=== PATIENT | female | born 1945 | race Caucasian/White ===

== ENCOUNTER → 2017-05-09 | Outpatient (CLI) | payer MEDICARE, OTHER ==
--- NOTE | 2017-05-09 10:34 | RAD ---
SHOULDER 2+V LEFT Clinical Indication: 71-year-old female with left shoulder pain, history of pain, no known fall. Comparison: April 2009, chest radiograph dated December 27, 2010. Technique: Attempted internal and external rotational and Y scapular views of the left shoulder are obtained. Findings: Significant degenerative changes of the glenohumeral joint are seen. There is chronic appearing anteromedial migration of the humeral head, as seen on previous exams. A definite dislocation is not seen, with positioning of the humeral head similar to previous post reduction images. The humeral head overlies the glenoid on nearly all images, limiting detailed visualization for nondisplaced fracture. Visualized ribs appear intact. Visualized lung is clear. Surrounding soft tissues demonstrate no acute finding. IMPRESSION: Chronic changes of the glenohumeral joint, detailed above, without definite evidence of fracture or dislocation.
== END | disposition home or self-care (01) ==
LOC: RAD 09:04
PROVIDERS: ATTEND Physician Assistant Medical
DX: M19.012 Primary osteoarthritis, left shoulder (principal)
CPT/HCPCS: 73030

== ENCOUNTER 2017-05-11 11:50 | Emergency (ER) | payer MEDICARE, OTHER ==
[~2017-05-11] VITALS: Ht 162.6 cm; Wt 112.0 kg
--- NOTE | 2017-05-11 12:59 | PHYS DOC ---
Past History Past Medical History: Arthritis, High Cholesterol Past Surgical History: Tonsillectomy Smoking: Non-smoker Alcohol Use: None Drug Use: None Adult General Chief Complaint Chief Complaint: SHOULDER INJURY HPI HPI 71-year-old left-handed female patient with history of chronic left shoulder pain and rotator cuff injury complaining of constant left shoulder pain for the past 6 days getting worse with movement without any known injury but states she felt a pop in her shoulder. Patient states she had X ray of her shoulder 3 days ago but does not know about the results and called her primary care physician who recommended to come to emergency room for evaluation. Patient denies history of shoulder dislocation or fracture, focal neuro deficit, fever and chills. Patient takes oxycodone and OxyContin and fentanyl patch and Ultram at home but states it does not help for her pain. Review of Systems Review of Systems Constitutional: Denies fever or chills [] Eyes: Denies change in visual acuity, redness, or eye pain [] HENT: Denies nasal congestion or sore throat [] Respiratory: Denies cough or shortness of breath [] Cardiovascular: No additional information not addressed in HPI [] GI: Denies abdominal pain, nausea, vomiting, bloody stools or diarrhea [] : Denies dysuria or hematuria [] Musculoskeletal: Reports joint pain [] Integument: Denies rash or skin lesions [] Neurologic: Denies headache, focal weakness or sensory changes [] Endocrine: Denies polyuria or polydipsia [] All other systems were reviewed and found to be within normal limits, except as documented in this note. Current Medications Current Medications Current Medications Medications (Trade) Dose Ordered Sig/[facility] Start Time Stop Time Status Last Admin Dose Admin Fentanyl Citrate (Fentanyl 2ml Vial) 50 mcg 1X ONCE 05/11/17 12:30 05/11/17 12:31 UNV Physical Exam Physical Exam Constitutional: Mild distress, non-toxic appearance, morbidly obese, anxious, sitting on electrical scooter HENT: Normocephalic, atraumatic, bilateral external ears normal, oropharynx moist, no oral exudates, nose normal. [] Eyes: PERRLA, EOMI, conjunctiva normal, no discharge. [] Neck: Normal range of motion, no tenderness, supple, no stridor. [] Cardiovascular:Heart rate regular rhythm, no murmur [] Lungs & Thorax: Bilateral breath sounds clear to auscultation [] Skin: Warm, dry, no erythema, no rash. [] Extremities: Left shoulder without deformity or focal tenderness, painful range of motion but able to raise her arm and use her left hand Neurologic: Alert and oriented X 3, normal motor function, normal sensory function, no focal deficits noted. [] Current Patient Data Vital Signs Vital Signs Date Time Temp Pulse Resp B/P (MAP) Pulse Ox O2 Delivery O2 Flow Rate FiO2 05/11/17 12:10 98.8 81 22 96 Room Air EKG EKG [] Radiology/Procedures Radiology/Procedures [] Course & Med Decision Making Course & Med Decision Making X-ray of left shoulder dated May 13 showed no acute fracture or dislocation, chronic degenerative changes Condition of patient showed 71-year-old female patient with several pain medication at home complaining of left shoulder pain for almost 1 week. Patient had sling without sign of fracture of dislocation in p x-ray. Patient had a shot of Fentanyl and instructed to follow with her primary care physician regarding chronic shoulder pain. Dragon Disclaimer Dragon Disclaimer This electronic medical record was generated, in whole or in part, using a voice recognition dictation system. Departure Departure: Impression: Primary Impression: Chronic left shoulder pain Disposition: HOME, SELF-CARE (At 1257) Condition: IMPROVED Referrals: VETO SHAH (PCP) Follow-up with your physician in 2 or 3 days Patient Instructions: Joint Sprain Additional Instructions: Use the sling and continue home pain medication MILADIS STEVENS MD May 11, 2017 12:59
[2017-05-11 13:08] VITALS: BP 130/71
== END 2017-05-11 13:10 | disposition home or self-care (01) ==
LOC: ER 11:50
DX: G89.29 Other chronic pain (principal); M25.512 Pain in left shoulder; E78.00 Pure hypercholesterolemia, unspecified; M19.90 Unspecified osteoarthritis, unspecified site
CPT/HCPCS: 96372; 99283; J3010

== ENCOUNTER → 2020-04-20 | Outpatient (CLI) | payer MEDICARE, OTHER ==
[2020-04-20 13:31] LABS: BASO # 0.1 x10^3/uL (0.0-0.2); BASO % 1 % (0-3); EOS # 0.2 x10^3/uL (0.0-0.7); EOS % 3 % (0-3); HEMATOCRIT 36.7 % (36.0-47.0); LYMPH # 1.1 x10^3/uL (1.0-4.8); LYMPH % 19 % (24-48); MEAN CORPUSCULAR HEMOGLOBIN 28 pg (25-35); MEAN CORPUSCULAR HGB CONC 33 g/dL (31-37); MEAN CORPUSCULAR VOLUME 87 fL (79-100); MONO # 0.4 x10^3/uL (0.0-1.1); MONO % 6 % (0-9); NEUT # 3.9 x10^3uL (1.8-7.7); NEUT % 71 % (31-73); PLATELET COUNT 224 x10^3/uL (140-400); RED BLOOD COUNT 4.24 x10^6/uL (3.50-5.40); RED CELL DISTRIBUTION WIDTH 14.5 % (11.5-14.5); WHITE BLOOD COUNT 5.6 x10^3/uL (4.0-11.0)
[2020-04-20 13:39] LABS: ALBUMIN 3.1 g/dL (3.4-5.0); ALBUMIN/GLOBULIN RATIO 0.8 (1.0-1.7); CALCIUM 9.6 mg/dL (8.5-10.1); CREATININE 1.4 mg/dL (0.6-1.0); GFR 36.7; POTASSIUM 4.5 mmol/L (3.5-5.1); TOTAL BILIRUBIN 0.1 mg/dL (0.2-1.0); TOTAL PROTEIN 7.1 g/dL (6.4-8.2)
[2020-04-20 20:02] LABS: FREE T4 1.14 ng/dL (0.76-1.46); THYROID STIM HORMONE (TSH) 2.418 uIU/mL (0.358-3.740)
== END ==
LOC: SPEC 13:09
PROVIDERS: ATTEND Physician Assistant
DX: Z01.812 Encounter for preprocedural laboratory examination (principal); D64.9 Anemia, unspecified; E66.9 Obesity, unspecified
CPT/HCPCS: 36415; 80053; 80061; 84439; 84443; 85025